=== PATIENT | male | born 2000 | race Caucasian/White ===

== ENCOUNTER 2021-04-30 16:32 | Emergency (ER) | payer MEDICAID, OTHER ==
[~2021-04-30] VITALS: Ht 190 cm; Wt 110.0 kg
[2021-04-30 16:36] VITALS: BP 118/78
--- NOTE | 2021-04-30 16:56 | ED Abdominal Pain ---
General Chief Complaint: Abdominal/GI Problems Stated Complaint: ABD PAIN AFTER EATING Nursing Triage Note: Patient reports to ED for abdominal pain that started about 3-4 weeks ago. Per pt he notices it after eating meals. Denies N/V/D. Patient reports he just moved here from [place] and has noticed it since moving here. Patient amb. to FT1 without difficulty. Source of Information: Patient Exam Limitations: No Limitations History of Present Illness Date Seen by Provider: Apr 30, 2021 Time Seen by Provider: 16:51 Initial Comments To ER by parents with reports of epigastric abdominal pain that starts immediately after eating consistently for the past 3 weeks. Any food causes this. The pain lasted for 15 to 20 minutes and then goes away. He also has nausea associated with the pain. No fever no chills no diarrhea. He just moved here from [place] and would like to get this checked out he states. At this time he is completely symptom-free. Timing/Duration: Intermittent Severity/Quality: Moderate Location: Epigastric Radiation: No Radiation Activities at Onset: None Associated Symptoms: Nausea/Vomiting Allergies and Home Medications Patient Home Medication List Home Medication List Reviewed: Yes Review of Systems Review of Systems Constitutional: see HPI EENTM: No Symptoms Reported Respiratory: No Symptoms Reported Cardiovascular: See HPI Gastrointestinal: See HPI, Abdominal Pain, Nausea Genitourinary: No Symptoms Reported Musculoskeletal: no symptoms reported Skin: no symptoms reported Psychiatric/Neurological: No Symptoms Reported Endocrine: No Symptoms Reported Hematologic/Lymphatic: No Symptoms Reported Past Nszvcrb-Ralmrk-Tgwchu Hx Patient Social History Tobacco Use?: Yes Smoking Status: Current Everyday Smoker Additional E-Cig or Vaping: vapes Use of E-Cig and/or Vaping Kaden: Current Everyday User Substance use?: No Alcohol Use?: Yes Alcohol type: Hard Liquor Alcohol Frequency: Once in a while Pt feels they are or have been: No Past Medical History Surgery/Hospitalization HX: Denies surg. and hosp. Physical Exam Vital Signs Vital Signs - First Documented 04/30/21 16:36 Temp 36.0 Pulse 83 Resp 18 B/P (MAP) 118/78 (91) O2 Delivery Room Air Capillary Refill : Less Than 3 Seconds Height/Weight/BMI Height: '" Weight: lbs. oz. kg; 30.00 BMI Method: General Appearance: WD/WN, no apparent distress Respiratory: no respiratory distress, no accessory muscle use Cardiovascular: regular rate, rhythm, no murmur Gastrointestinal: normal bowel sounds, non tender, soft Extremities: normal range of motion, non-tender Neurologic/Psychiatric: alert, normal mood/affect, oriented x 3 Skin: normal color, warm/dry Progress/Results/Core Measures Results/Orders Lab Results Laboratory Tests Test 04/30/21 16:56 Range/Units White Blood Count 9.0 4.3-11.0 10^3/uL Red Blood Count 5.66 H 4.30-5.52 10^6/uL Hemoglobin 16.0 13.3-17.7 g/dL Hematocrit 47 40-54 % Mean Corpuscular Volume 82 80-99 fL Mean Corpuscular Hemoglobin 28 25-34 pg Mean Corpuscular Hemoglobin Concent 34 32-36 g/dL Red Cell Distribution Width 13.5 10.0-14.5 % Platelet Count 246 130-400 10^3/uL Mean Platelet Volume 10.0 9.0-12.2 fL Immature Granulocyte % (Auto) 0 % Neutrophils (%) (Auto) 66 42-75 % Lymphocytes (%) (Auto) 24 12-44 % Monocytes (%) (Auto) 9 0-12 % Eosinophils (%) (Auto) 1 0-10 % Basophils (%) (Auto) 0 0-10 % Neutrophils # (Auto) 5.9 1.8-7.8 10^3/uL Lymphocytes # (Auto) 2.2 1.0-4.0 10^3/uL Monocytes # (Auto) 0.8 0.0-1.0 10^3/uL Eosinophils # (Auto) 0.1 0.0-0.3 10^3/uL Basophils # (Auto) 0.0 0.0-0.1 10^3/uL Immature Granulocyte # (Auto) 0.0 0.0-0.1 10^3/uL Sodium Level 140 135-145 MMOL/L Potassium Level 3.7 3.6-5.0 MMOL/L Chloride Level 106 98-107 MMOL/L Carbon Dioxide Level 22 21-32 MMOL/L Anion Gap 12 5-14 MMOL/L Blood Urea Nitrogen 11 7-18 MG/DL Creatinine 0.93 0.60-1.30 MG/DL Estimat Glomerular Filtration Rate 103 BUN/Creatinine Ratio 12 Glucose Level 115 H 70-105 MG/DL Calcium Level 9.7 8.5-10.1 MG/DL Corrected Calcium 9.3 8.5-10.1 MG/DL Total Bilirubin 1.1 H 0.1-1.0 MG/DL Aspartate Amino Transf (AST/SGOT) 20 5-34 U/L Alanine Aminotransferase (ALT/SGPT) 18 0-55 U/L Alkaline Phosphatase 83 40-136 U/L Total Protein 7.2 6.4-8.2 GM/DL Albumin 4.5 3.2-4.5 GM/DL Lipase 17 8-78 U/L My Orders Orders - EDERCRISTELA Ng APRN Cbc With Automated Diff (04/30/21 16:51) Comprehensive Metabolic Panel (04/30/21 16:51) Lipase (04/30/21 16:51) Vital Signs/I&O 04/30/21 16:36 Temp 36.0 Pulse 83 Resp 18 B/P (MAP) 118/78 (91) O2 Delivery Room Air Blood Pressure Mean: 91 Departure Communication (Admissions) [id number] most recently ate about 50 minutes ago so gallbladder ultrasound would not be performed at this time. His mother is very anxious and at the bedside. She asks if he can have a gallbladder ultrasound since he "did not eat very much". Discussed with her that he cannot have a time today. Discussed with him that I would write the order for it which I did. However, I spoke with him and his mother and told them both that insurance companies may require a prior a uthorization. If they do then the order will need to be rewritten by either surgery or primary care. However if they do not then my order will suffice and he will still need to follow-up with surgery or primary care to get the results. Impression Primary Impression: Postprandial epigastric pain Disposition: HOME, SELF-CARE Condition: Stable Departure-Patient Inst. Decision time for Depature: 16:53 Referrals: KOBI BARRIOS BRETT D DO HUDSON, CASEY V DO NO,LOCAL PHYSICIAN (PCP) Primary Care Physician Patient Instructions: Dyspepsia, Gallbladder Diet Add. Discharge Instructions: 1. Call one of the surgeons listed (Dr. Kobi Barrios or Dr. Neno Coleman) tomorrow to make an appointment to be seen for further evaluation. Call the scheduling department to see if you can schedule the gallbladder ultrasound. However, be mindful that some insurance companies require prior authorization which is not done in the emergency room. This will require you to see either primary care or one of the surgeons listed first to help arrange the galbladded ultrasound IF your insurance company requires a prior authorization. Also, call [facility] Dr Gordon Grullon to establish with a primary care provider. All discharge instructions reviewed with patient and/or family. Voiced understanding. Copy Copies To 1: NENO COLEMAN PETER J APRN Apr 30, 2021 16:56
[2021-04-30 17:03] LABS: BASOPHILS % (AUTO) 0 % (0-10); EOSINOPHILS # (AUTO) 0.1 10^3/uL (0.0-0.3); EOSINOPHILS % (AUTO) 1 % (0-10); HEMATOCRIT 47 % (40-54); LYMPHOCYTES # (AUTO) 2.2 10^3/uL (1.0-4.0); LYMPHOCYTES % (AUTO) 24 % (12-44); MEAN CORPUSCULAR HEMOGLOBIN 28 pg (25-34); MEAN CORPUSCULAR HGB CONC 34 g/dL (32-36); MEAN CORPUSCULAR VOLUME 82 fL (80-99); MONOCYTES # (AUTO) 0.8 10^3/uL (0.0-1.0); MONOCYTES % (AUTO) 9 % (0-12); NEUTROPHILS # (AUTO) 5.9 10^3/uL (1.8-7.8); NEUTROPHILS % (AUTO) 66 % (42-75); PLATELET COUNT 246 10^3/uL (130-400)
[2021-04-30 17:13] LABS: ALBUMIN 4.5 GM/DL (3.2-4.5); POTASSIUM 3.7 MMOL/L (3.6-5.0)
[2021-04-30 17:14] LABS: CALCIUM 9.7 MG/DL (8.5-10.1)
[2021-04-30 17:15] LABS: TOTAL PROTEIN 7.2 GM/DL (6.4-8.2)
[2021-04-30 17:17] LABS: BILIRUBIN,TOTAL 1.1 MG/DL (0.1-1.0)
[2021-04-30 17:19] LABS: CREATININE SERUM 0.93 MG/DL (0.60-1.30)
== END 2021-04-30 17:41 | disposition home or self-care (01) ==
LOC: ER 16:36
DX: R10.13 Epigastric pain (principal); F17.290 Nicotine dependence, other tobacco product, uncomplicated
CPT/HCPCS: 36415; 80053; 83690; 85025

== ENCOUNTER → 2021-05-02 | Outpatient (CLI) | payer MEDICAID ==
--- NOTE | 2021-05-02 10:49 | Diagnostic Imaging Report ---
PROCEDURE: US Gallbladder. TECHNIQUE: Multiple real-time grayscale images were obtained over the right upper quadrant in various projections. Indication: Right upper quadrant abdominal pain. FINDINGS: The liver is normal in size, shape and echotexture. There are no focal lesions. No intra or extrahepatic biliary dilatation is present. The common bile duct is not dilated and measures 5 mm. There is no evidence of cholelithiasis, gallbladder wall thickening or pericholecystic fluid. The visualized portions of the head and proximal body of the pancreas are within normal limits. The distal body and tail of the pancreas are not visualized due to overlying bowel gas. The right kidney measures approximately 11 cm in length and has a normal appearance. The visualized portions of the IVC and aorta are normal. IMPRESSION: 1. No cholelithiasis or acute cholecystitis. Negative liver/gallbladder sonogram. Dictated by: Dictated on workstation # [id number]
== END ==
LOC: RAD 09:30
PROVIDERS: ATTEND Nurse Practitioner Family
DX: R10.11 Right upper quadrant pain (principal); R10.13 Epigastric pain
CPT/HCPCS: 76705

== ENCOUNTER 2022-05-25 22:27 | Emergency (ER) | payer BC, MEDICAID ==
[~2022-05-25] VITALS: Ht 193 cm; Wt 115.6 kg
[2022-05-25 22:38] VITALS: BP 148/112
--- NOTE | 2022-05-25 22:44 | ED Upper Extremity ---
General Chief Complaint: Upper Extremity Stated Complaint: R HAND PAIN History of Present Illness Date Seen by Provider: May 25, 2022 Time Seen by Provider: 22:39 Initial Comments 22-year-old male here with right hand and wrist pain. Patient states he got upset and punched a wall. Patient having swelling. States he felt like there was some tingling and numbness. But he is able to feel distal to the injury. His fingertips has good sensation. Pain/Injury Location: right wrist, right hand Method of Injury: other (punched a wall) Allergies and Home Medications Allergies Coded Allergies: Sulfa (Sulfonamide Antibiotics) (Verified Allergy, Unknown, 05/25/22) Tetanus Vaccines and Toxoid (Verified Allergy, Unknown, 05/25/22) Patient Home Medication List Home Medication List Reviewed: Yes Review of Systems Constitutional: see HPI Past Tllzqjv-Xcfkmt-Vmghnc Hx Patient Social History Tobacco Use?: No Past Medical History Surgery/Hospitalization HX: Denies surg. and hosp. Physical Exam Vital Signs Vital Signs - First Documented 05/25/22 22:38 Temp 36.8 Pulse 94 Resp 16 B/P (MAP) 148/112 (124) Capillary Refill : Height, Weight, BMI Height: '" Weight: lbs. oz. kg; 30.00 BMI Method: General Appearance: WD/WN, no apparent distress Hand: Right, bone tenderness, ecchymosis, limited ROM, swelling Neurologic/Psychiatric: alert, normal mood/affect, oriented x 3 Skin: normal color, warm/dry Progress/Results/Core Measures Results/Orders My Orders Orders - REBEKA RAINEY MD Hand 3 View Right (05/25/22 22:44) Vital Signs/I&O 05/25/22 22:38 Temp 36.8 Pulse 94 Resp 16 B/P (MAP) 148/112 (124) Diagnostic Imaging Diagonstic Imaging: Xray Plain Films/CT/US/NM/MRI: hand Comments No fractures noted. Radiology read pending Reviewed: Reviewed by Me Departure Impression Primary Impression: Contusion of hand Qualified Codes: S60.221A - Contusion of right hand, initial encounter Disposition: HOME, SELF-CARE Condition: Stable Departure-Patient Inst. Referrals: NO,LOCAL PHYSICIAN (PCP/Family) Primary Care Physician Patient Instructions: Contusion (DC), Hand Pain (DC) Add. Discharge Instructions: Ice the hand. Ibuprofen Tylenol for pain. Follow-up with primary care if not pain not better All discharge instructions reviewed with patient and/or family. Voiced understanding. REBEKA RAINEY MD May 25, 2022 22:44
--- NOTE | 2022-05-26 07:08 | Diagnostic Imaging Report ---
EXAM: HAND 3 VIEW RIGHT INDICATION: Right hand pain. Fall. COMPARISON: None. FINDINGS: No fracture or malalignment identified. Soft tissues are unremarkable. IMPRESSION: Negative right hand radiographs. Dictated by: Dictated on workstation # [id number]
== END 2022-05-25 23:35 | disposition home or self-care (01) ==
LOC: EDUNIT# 22:27 → ER FS 22:27
DX: S60.221A Contusion of right hand, initial encounter (principal); Z28.310 Unvaccinated for COVID-19; Y04.8XXA Assault by other bodily force, initial encounter
CPT/HCPCS: 73130

== ENCOUNTER 2022-10-11 22:03 | Emergency (ER) | payer SELFPAY ==
[~2022-10-11] VITALS: Ht 193 cm; Wt 108.0 kg
--- NOTE | 2022-10-12 01:32 | ED General ---
General Chief Complaint: Respiratory Problems Stated Complaint: ABD PAIN,BLOODY STOOL,SOB Nursing Triage Note: PATIENT VERBALIZED ABDOMINAL PAIN UPPER/LOWER CHEST PAIN WITH DEEP BREATHS. STATES AT TIMES FEELS SHORT OF AIR. PATIENT STATES EARLIER TODAY HE ALSO HAD "BLOOD" IN HIS STOOL WHEN HE USED THE TOILET. Source of Information: Patient, Family History of Present Illness Date Seen by Provider: Oct 12, 2022 Time Seen by Provider: 01:12 Initial Comments 22-year-old male presenting with complaints of lower abdominal pain and pressure as well as he had constipation with a hard bowel movement resulting in bright red blood. This continued with this next bowel movement as well. After having the bright red blood in the stool he became more short of breath and felt tightness in his chest. He felt like he had pain if he takes deep breaths. He denies having abdominal pain or blood in his stools previously. He does have a history of asthma and does not take medications for it. Timing/Duration: 12-24 Hours Severity: Moderate Associated Systoms: Chest Pain (Sharp pain in the lower part of his chest with deep breaths); No Cough, No Diaphoresis, No Fever/Chills, No Headaches, No Loss of Appetite, No Malaise, No Nausea/Vomiting, No Rash, No Seizure; Shortness of Air; No Syncope, No Weakness Allergies and Home Medications Allergies Coded Allergies: Sulfa (Sulfonamide Antibiotics) (Verified Allergy, Unknown, 05/25/22) Tetanus Vaccines and Toxoid (Verified Allergy, Unknown, 05/25/22) Patient Home Medication List Home Medication List Reviewed: Yes Review of Systems Review of Systems Constitutional: No chills, No dizziness, No fever; malaise EENTM: no symptoms reported Respiratory: see HPI Cardiovascular: see HPI Gastrointestinal: see HPI Genitourinary: no symptoms reported Musculoskeletal: no symptoms reported Skin: No change in color, No rash Psychiatric/Neurological: Anxiety Past Uztvwgs-Rfvfny-Rwdoue Hx Immunizations Up To Date First/Initial COVID19 Vaccinat: 2020 Second COVID19 Vaccination Chet: 2020 Past Medical History Surgery/Hospitalization HX: Denies surg. and hosp. Asthma history Surgeries: No Respiratory: Yes Asthma Physical Exam Vital Signs Vital Signs - First Documented 10/11/22 22:26 Temp 36.4 Pulse 89 Resp 20 B/P (MAP) 117/67 (84) Pulse Ox 98 O2 Delivery Room Air Capillary Refill : Less Than 3 Seconds Height, Weight, BMI Height: '" Weight: lbs. oz. kg; 28.00 BMI Method: General Appearance: No Apparent Distress, WD/WN, Anxious HEENT: PERRL/EOMI, Pharynx Normal Neck: Full Range of Motion, Normal Inspection, Non Tender, Supple Respiratory: Chest Non Tender, Lungs Clear, Normal Breath Sounds, No Accessory Muscle Use, No Respiratory Distress Cardiovascular: Regular Rate, Rhythm, Normal Peripheral Pulses Gastrointestinal: Normal Bowel Sounds, No Pulsatile Mass, Soft; No Distended, No Guarding; Tenderness (Complaints of a pressure sensation with palpation over the lower abdomen) Rectal: Deferred (Patient refused rectal exam) Extremity: Normal Capillary Refill, Normal Inspection, No Pedal Edema Neurologic/Psychiatric: Alert, Oriented x3, hydrodynamicist II-XII Norm as Tested Skin: Normal Color, Warm/Dry Progress/Results/Core Measures Suspected Sepsis SIRS Temperature: Pulse: 89 Respiratory Rate: 20 Blood Pressure 117 /67 Mean: 84 Results/Orders Lab Results Laboratory Tests Test 10/11/22 22:56 Range/Units Influenza Type A (RT-PCR) Not Detected Not Detecte Influenza Type B (RT-PCR) Not Detected Not Detecte SARS-CoV-2 RNA (RT-PCR) Not Detected Not Detecte My Orders Orders - JAVIER SEVILLA MD Covid 19 Inhouse Test (10/11/22 23:05) Influenza A And B By Pcr (10/11/22 23:05) Isolation Central Supply Req (10/11/22 23:05) Vital Signs/I&O 10/11/22 10/12/22 22:26 01:33 Temp 36.4 36.4 Pulse 89 80 Resp 20 20 B/P (MAP) 117/67 (84) 117/67 Pulse Ox 98 98 O2 Delivery Room Air Room Air Capillary Refill : Less Than 3 Seconds Blood Pressure Mean: 84 Progress Note : Progress Note Patient had an extended wait time before being seen due to multiple ill patients in the emergency department. When he was finally evaluated he was reassured that his oxygen saturation was doing well and his lung exam was clear without signs of infection. A nasal swab had been obtained based off of his symptoms of pressure in his abdomen as well as shortness of breath and pain with deep breaths. This had come back negative for COVID and influenza. I reviewed with him that we could obtain blood work as well as I could do a rectal exam on him to evaluate where the blood was coming from. He could have a CT scan of his abdomen and pelvis to further evaluate the bright red blood per rectum and constipation. Patient refused and stated that at this point he was tired and just wanted to go home to sleep. He did not want to be subjected to testing and additional wait time. Counseled on follow-up and return precautions and advised to establish care with primary care clinic and be seen for continued symptoms. Try to increase fiber in the diet and consider adding MiraLAX or a laxative to help keep the stools more soft and regular. This would help from a hemorrhoid standpoint. He may need to be provided an inhaler again if he continues to have sharp pains in his chest with deep breathing. This could also be related to anxiety since it came on after he saw the blood in the stool. Departure Impression Primary Impression: Bright red blood per rectum Additional Impressions: Shortness of breath Abdominal pressure Constipation Qualified Codes: K59.00 - Constipation, unspecified Disposition: HOME, SELF-CARE Condition: Stable Departure-Patient Inst. Decision time for Depature: 01:31 Referrals: DAVE NORRIS MD NO,LOCAL PHYSICIAN (PCP) Primary Care Physician Patient Instructions: Bloody Stools, Adult ED, Constipation, Adult ED, Shortness of Breath, Adult ED Add. Discharge Instructions: Consider taking MiraLAX or laxative to help with the constipation and straining for your stools. Increase the fiber in your diet to help keep the stools more soft and regular. Make sure to continue to drink plenty of fluids and stay well-hydrated. If your symptoms are worsening and you are having more blood in your stools or start running high fevers over 101 Fahrenheit then return or seek medical care for further evaluation. All discharge instructions reviewed with patient and/or family. Voiced understanding. JAVIER SEVILLA MD Oct 12, 2022 01:32
[2022-10-12 01:33] VITALS: BP 117/67
== END 2022-10-12 01:33 | disposition home or self-care (01) ==
LOC: EDUNIT# 22:03 → ER FS 22:05
DX: K62.5 Hemorrhage of anus and rectum (principal); K59.00 Constipation, unspecified; R06.02 Shortness of breath; Z20.822 Contact with and (suspected) exposure to COVID-19
CPT/HCPCS: 87636; 99283